=== PATIENT | female | born 2000 | race Caucasian/White ===

== ENCOUNTER 2020-08-08 12:51 | Emergency (ER) | payer BC, SELFPAY ==
[2020-08-08 13:18] VITALS: BP 106/66; PULSE 86; RESP 16; TEMP 37; O2SAT 98
--- NOTE | 2020-08-08 13:50 | ED.URI ---
HPI - URI/Sore Throat General Chief Complaint: Upper Respiratory Infection Stated Complaint: coughing up blood History of Present Illness HPI Narrative: This is a 19-year-old female comes in complaining of having a sore throat for the past 2 days. Patient states today she went to work started getting hot flashes and feeling weak and shaky and then she began to cough up blood into her mask. Patient states she took her mask off and started coughing in blood continue to come for approximately 30 minutes. Patient states that still when she has a cough or sneeze the blood is in her mask. Patient states that she has vape for approximately 1 to 2 years and she is quit according to patient she quit approximately 1 to 2 weeks ago she does smoke a pack a day. Patient denies any fever or nausea Related Data Home Medications Medication Instructions Recorded Confirmed No Home Medications 08/08/20 08/08/20 Allergies Allergy/AdvReac Type Severity Reaction Status Date / Time No Known Allergies Allergy Verified 08/08/20 13:09 Review of Systems Review of Systems: Narrative: CONSTITUTIONAL: Denies fever, chills, or sweats. EYES: Denies visual changes, redness, or discharge. ENT: Denies rhinorrhea, congestion, sore throat, or otalgia. CARDIOVASCULAR:Denies chest pain, palpitations, or edema. RESPIRATORY: Denies cough or dyspnea. Coughing up blood GASTROINTESTINAL: Denies abdominal pain, nausea, vomiting, or diarrhea. GENITOURINARY: Denies dysuria or hematuria. SKIN:[Denies rash or itching. MUSCULOSKELETAL:Denies back pain, joint pain, or myalgia. NEUROLOGIC: Denies headache, numbness, or weakness. PSYCHIATRIC:Denies anxiety or depression PMFSH Social History Social History Gender identity (if verbalized by the patient): Female Comments At time as signature, I have reviewed and agree with nursing past medical, social, surgical and family history. Please see nursing chart for further information. There is no relevant family history pertinent to the presenting complaint. Exam Narrative: Exam Narrative: GENERAL:Well-appearing, well-nourished, and in no acute distress. HEAD:Normocephalic, atraumatic. EYES: PERRLA and EOMI. ENT: Nares clear, no rhinorrhea or epistaxis. Mucous membranes moist. Slight pharyngeal erythema NECK: Supple. CHEST: Clear to auscultation. No respiratory distress. HEART: Regular rate and rhythm. No murmur heard. Normal peripheral pulses. ABDOMEN: Soft, nontender, nondistended, normal active bowel sounds. EXTREMITIES: Normal range of motion. No edema. SKIN: Warm, dry, no rash. NEURO: No focal deficits. Alert and oriented x3. Patient currently has a mask that is bloodstained Course Vital Signs Vital signs: Vital Signs Temperature 98.6 F 08/08/20 13:18 Pulse Rate 86 08/08/20 13:18 Respiratory Rate 16 08/08/20 13:18 Blood Pressure 106/66 08/08/20 13:18 Pulse Oximetry 98 08/08/20 13:18 Temperature 98.6 F 08/08/20 13:18 Pulse Rate 86 08/08/20 13:18 Respiratory Rate 16 08/08/20 13:18 Blood Pressure 106/66 08/08/20 13:18 Pulse Oximetry 98 08/08/20 13:18 MDM - URI/Sore Throat MDM Narrative Medical decision making narrative: Strep negative, Covid negative, Influenza Negative Differential Diagnosis Differential diagnosis: Likely upper respiratory infection and bronchitis Lab Data Labs: Lab Results 08/08/20 Range/Units 13:25 POC SARS CoV-2 Ag Negative (Negative) Influenza A Screen Negative Reference Range: Negative Influenza B Screen Negative Reference Range: Negative Strep Screen Presumptive Negative *(Reference Range: Negative)* Discharge Plan Discharge Clinical Impression: Cough with hemoptysis Patient Disposition: Acute Care Hospital Condition: Stable
== END 2020-08-08 14:00 | disposition short-term general hospital (02) ==
PROVIDERS: Emergency Provider Nurse Practitioner Family
DX: R04.2 Hemoptysis (principal); Z20.822 Contact with and (suspected) exposure to COVID-19
CPT/HCPCS: 87081; 87426; 87804; 87880; 99203; C9803; G0463

== ENCOUNTER 2020-08-08 14:20 | Emergency (ER) | payer BC, SELFPAY ==
--- NOTE | 2020-08-08 16:03 | PC.NURSE ---
Patient called without answer for triage at this time.
== END 2020-08-08 16:03 | disposition left against medical advice (07) ==
LOC: ANHED 16:23
DX: Z53.21 Procedure and treatment not carried out due to patient leaving prior to being seen by health care provider (principal)
CPT/HCPCS: 99199

== ENCOUNTER 2020-08-08 17:02 | Emergency (ER) | payer BC, SELFPAY ==
--- NOTE | 2020-08-08 17:30 | PC.NURSE ---
patient walked out of ED, reports that she can come back tomorrow and does not want to wait again.
== END 2020-08-08 18:45 | disposition left against medical advice (07) ==
LOC: ANHED 18:51
DX: Z53.21 Procedure and treatment not carried out due to patient leaving prior to being seen by health care provider (principal)
CPT/HCPCS: 99199

== ENCOUNTER 2024-01-24 17:21 | Outpatient (CLI) | payer BC, SELFPAY ==
[2024-01-24 18:13] LABS: Beta HCG Quantitative 246.54 mIU/ML
== END 2024-01-24 17:22 | disposition home or self-care (01) ==
PROVIDERS: Visit Provider Advanced Practice Midwife
DX: N91.2 Amenorrhea, unspecified (principal)
CPT/HCPCS: 36415; 84702

== ENCOUNTER 2024-01-26 15:54 | Outpatient (CLI) | payer BC, SELFPAY | END 2024-01-26 15:55 | disposition home or self-care (01) | LOC: ANHLAB 15:56 | PROVIDERS: Visit Provider Obstetrics & Gynecology | DX: N91.2 Amenorrhea, unspecified (principal) | CPT/HCPCS: 36415; 84702 ==

== ENCOUNTER 2024-02-03 11:48 | Outpatient (RCR) | payer BC, SELFPAY ==
[2024-02-01 13:38] LABS: Beta HCG Quantitative 514.52 mIU/ML
== END 2024-05-01 23:59 | disposition home or self-care (01) ==
LOC: ANHLAB 11:48
PROVIDERS: Visit Provider Nurse Practitioner Women's Health
DX: O26.851 Spotting complicating pregnancy, first trimester (principal); Z3A.00 Weeks of gestation of pregnancy not specified
CPT/HCPCS: 36415; 84702

== ENCOUNTER 2024-02-07 14:55 | Outpatient (RCR) | payer BC, SELFPAY ==
[2024-02-07 15:38] LABS: Beta HCG Quantitative 27.23 mIU/ML
== END 2024-05-07 23:59 | disposition home or self-care (01) ==
LOC: ANHLAB 14:55
PROVIDERS: Visit Provider Advanced Practice Midwife
DX: O03.9 Complete or unspecified spontaneous abortion without complication (principal)
CPT/HCPCS: 36415; 84702; 86850; 86900; 86901

== ENCOUNTER 2024-11-13 11:30 | Observation (INO) | payer BC, MEDICAID, SELFPAY ==
--- NOTE | ~2024-11-13 | US_ITS ---
EXAMINATION: US OB limited DATE: 11/13/2024 11:05 INDICATION: Vaginal bleeding during second trimester TECHNIQUE: Real-time ultrasound of the pelvis was performed. The interpreting radiologist was not pre sent for the study. COMPARISON: None. FINDINGS: There is a single living fetus in vertex presentation. The placenta is anterior with caudal margin 4 .2 cm from the internal cervical os. There is a 2.3 x 1.1 x 0.7 cm anechoic fluid collection along th e superficial margin of the right side of the placenta which could represent a placental reyes or smal l subchorionic hematoma. Slightly favor the former. Cervical length is measured at approximately 2.7 cm however assessment is limited on the transabdominal imaging with the region of the external os not clearly visualized. No evident funneling at the internal cervical os. heart rate is 151 beats per minute (bpm). The amniotic fluid volume is subjectively normal with normal deepest vertical pocke t measurement of 5.6 cm. IMPRESSION: 1. Single living fetus in vertex presentation with heart rate of 151 bpm. 2. Anterior placenta with caudal margin 4.2 cm and internal cervical os and 2.3 x 1.1 x 0.7 cm placen abbie reyes versus less likely subchorionic hematoma along the right side of the placenta. 3. Cervical length measured at 2.7 cm although this may be underestimated as the external os is not c learly visualized on the transabdominal imaging. Reviewed, dictated and finalized at location B. IMPRESSION: 1. Single living fetus in vertex presentation with heart rate of 151 bpm . 2. Anterior placenta with caudal margin 4.2 cm and internal cervical os and 2.3 x 1.1 x 0.7 cm placental reyes versus less likely subchorionic hematoma along t he right side of the placenta. 3. Cervical length measured at 2.7 cm although this may be underestimated as th e external os is not clearly visualized on the transabdominal imaging.
[2024-11-13 10:22] VITALS: BMI 27.0
--- NOTE | 2024-11-13 10:24 | OBADM ---
This patient, Tiffanie Peng, admitted to the OB room 113 for observation. Patient/family oriented to hospital policies and general routines including ID bracelet, bed and alarms, visiting hours, pain management, procedures, bathroom and other care routines, personal items, smoking policy, room service/diet, and visiting hours. Patient/Family are encouraged to report perceived risks to care and to ask questions if they do not understand what they are told or what they should do.
--- NOTE | 2024-11-13 10:37 | PC.NURSE ---
Dr. Jordan Notified of pt. on the unit for vaginal bleeding and cramping. Order received for US to check placenta.
[2024-11-13 10:43] VITALS: BP 110/62; PULSE 82
--- NOTE | 2024-11-13 11:00 | PC.NURSE ---
FHTs verified via doppler, baseline 156. 1 contraction noted for 1 minute, not felt by patient.
--- OUTSIDE RECORDS SUMMARY | 2024-11-13 11:26 | XMS_ITS | Patient Health Record ---
Author Organization [facility] Address [address] [place] [address] Support Name Relationship Address Phone KumarRolanda london Emergency Contact Unknown [phone] Tiffanie Peng Guarantor Unknown [phone] Reason For Referral No Information Plan Of Treatment No Information
--- OUTSIDE RECORDS SUMMARY | 2024-11-13 11:26 | XMS_ITS | Clinical Summary ---
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 Gender Identity Not on file Sexual Orientation Not on file Plan of Treatment Health Maintenance Due Date Last Done Comments Hepatitis C Virus (HCV) Screening 1999 Human Papillomavirus (HPV) Immunization (1 - 3-dose series) 2014 Pap Smear 2020 Influenza Immunization (#1) 2024 SARS-COV-2 Immunization (2 - 2023- season) 2024 07/27/2021 Respiratory Syncytial Virus (RSV) Immunization (Adult) (1 - 1-dose 75+ series) 2074 Hepatitis B Immunization Completed 000, 01/12/2000, 1999 DTaP/Tdap/Td Immunization Discontinued 2011, 01/30/2005, 02/19/2003, Additional history exists TdaP Immunization Completed 08/13/2011 Meningococcal Immunization (ACWY) Completed 02/24/2018 Meningococcal B Immunization Discontinued 08/12/2018, 02/24/2018 Pneumococcal Immunization Combined Aged Out No longer eligible based on patient's age to complete this topic Rotavirus Immunization Aged Out No lo nger eligible based on patient's age to complete this topic
--- NOTE | 2024-11-13 11:29 | PC.NURSE ---
Dr. Jordan called with US results. Orders received to id home to self care. Follow up in the office and pelvic rest until further notice.
--- OUTSIDE RECORDS SUMMARY | 2024-11-14 07:23 | XMS_ITS | Clinical Summary ---
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
--- OUTSIDE RECORDS SUMMARY | 2024-11-14 07:24 | XMS_ITS | Data Portability ---
Author Organization [facility] Address [address] [place] [address] [place] [address] Assessment Encounter Date Assessment Date Assessment LastModified by Organization Details LastModified Time 11/10/2024 11/10/2024 Patient is _20__weeks . Discussed plan. Not available 11/10/2024 15:38:54 Plan of Treatment Reminders Order Date Submit Date Provider Last Modified By Organization Details Last Modified Time Details Appointments U/S OB BASELIN E 2024 01:30P M ULTRASOUND Not available Not available Not available OB ROUTINE 2024 02:45P M Berhane CAIN MD Not available Not available Not available Lab drug screen, urine 2024 025 [facility], [address], [place], [address], 11/10/2024 17:35:50 drug screen, urine 2024 025 [facility] (Lab), [address], [place], [address], 11/11/2024 06:42:11 Referral None recorde d. Procedures None recorde d. Surgeries None recorde d. Imaging US, obstetr ic, 2nd or 3rd trimest er 2024 025 [email or web address] [facility], [address], [place], [address], 11/10/2024 17:42:59 US, obstetr ic, nuchal translu cency 2024 025 [email or web address] [facility], [address], [address], [place], [address], 09/14/2024 22:26:43 Medication Orders None recorde d. Patient TargetsNo targets recorded. Patient InstructionsNo instructions recorded. Reason for Referral None Reported. Results Created Date Observation Date Name Description Value Unit Range Abnormal Flag Note LastModifiedBy Organization Detail LastModifiedTime 09/22/1909/21/2024 [UNIT Y] ANEUP LOIDY NIPT fraction 14.2% normal Not Available [facility] [address] [place] [address], [place], [address], 09/21/2024 02:52:11 09/22/19 25 09/21/2024 [UNIT Y] ANEUP LOIDY NIPT 22Q11.2 microdeletio n LOW RISK <1 in 10,000 normal Not Available [facility] [address] [place], [address], 09/21/2024 02:52:11 09/22/19 25 09/21/2024 [UNIT Y] ANEUP LOIDY NIPT sex chromosome aneuploidy NOT DETECT ED normal Not Available [facility] [address] [facility], [place], [address], 09/21/2024 02:52:11 09/22/19 25 09/21/2024 [UNIT Y] ANEUP LOIDY NIPT monosomy X LOW RISK <1 in 10,000 normal Not Available [facility] [address] [place], [address], 09/21/2024 02:52:11 09/22/19 25 09/21/2024 [UNIT Y] ANEUP LOIDY NIPT trisomy 13 LOW RISK <1 in 10,000 normal Not Available [facility] [address] [facility], [place], [address], 09/21/2024 02:52:11 09/22/19 25 09/21/2024 [UNIT Y] ANEUP LOIDY NIPT trisomy 18 LOW RISK <1 in 10,000 normal Not Available [facility] [address] [facility], [place], [address], 09/21/2024 02:52:11 09/22/19 25 09/21/2024 [UNIT Y] ANEUP LOIDY NIPT trisomy 21 LOW RISK <1 in 10,000 normal Not Available [facility] [address] [facility], [place], [address], 09/21/2024 02:52:11 09/22/19 25 09/21/2024 [UNIT Y] ANEUP LOIDY NIPT sex FEMALE normal Not Available [facility] [address] [facility], [place], [address], 09/21/2024 02:52:11 09/22/19 25 09/21/2024 [UNIT Y] ANEUP LOIDY NIPT gestation SINGLE TON normal Not Available [facility] [address] [facility], [place], [address], 09/21/2024 02:52:11 09/22/19 25 09/21/2024 [UNIT Y] ANEUP LOIDY NIPT for detailed report, see pdf See PDF normal Not Available [facility] [address] [facility], [place], [address], 09/21/2024 02:52:11 09/23/19 25 09/22/2024 [UNIT Y] HEIDE SALGADO N sickle cell disease/beta -thalassemia /hemoglobino pathies carrier screen NEGATI VE normal Not Available [facility] [address] [facility], [place], [address], 09/22/2024 19:34:32 09/23/19 25 09/22/2024 [UNIT Y] HEIDE SALGADO N alpha-thalas semia carrier screen NEGATI VE normal Not Available [facility] [address] [facility], [place], [address], 09/22/2024 19:34:32 09/23/19 25 09/22/2024 [UNIT Y] HEIDE Hyatt cystic fibrosis carrier screen NEGATI VE normal Not Available [facility] [address], [place], [address], 09/22/2024 19:34:32 09/23/19 25 09/22/2024 [UNIT Y] HEIDE Hyatt spinal muscular atrophy carrier screen NEGATI VE 2 SMN1 copies , SNP not presen t normal Not Available [facility] [address], [place], [address], 09/22/2024 19:34:32 09/23/19 25 09/22/2024 [UNIT Y] HEIDE LISA Hyatt for detailed report, see pdf See PDF normal Not Available [facility] [address], [place], [address], 09/22/2024 19:34:32 09/14/19 25 09/14/2024 CBC W/DIF F WBC 11.0 10'3/ uL 3.5-10 .5 high Not Available [facility] (Lab) [address] [place], [address], 09/19/2024 10:34:00 09/14/19 25 09/14/2024 CBC W/DIF F RBC 4.45 10'6/ uL (based on docume nted legal sex) 3.80-5 .20 Not Available [facility] (Lab) [address] [place], [address], 09/19/2024 10:34:00 09/14/19 25 09/14/2024 CBC W/DIF F HGB 12.4 g/dL (based on docume nted legal sex) 11.6-1 5.4 Not Available [facility] (Lab) [address] [place], [address], 09/19/2024 10:34:00 09/14/19 25 09/14/2024 CBC W/DIF F HCT 37.4 % (based on docume nted legal sex) 34.0-4 5.0 Not Available [facility] (Lab) [address], [place], [address], 09/19/2024 10:34:00 09/14/19 25 09/14/2024 CBC W/DIF F MCV 84.0 fL 80.0-9 9.0 Not Available [facility] (Lab) [address], [place], [address], 09/19/2024 10:34:00 09/14/19 25 09/14/2024 CBC W/DIF F MCH 27.9 pg 27.0-3 4.0 Not Available [facility] (Lab) [address], [place], [address], 09/19/2024 10:34:00 09/14/19 25 09/14/2024 CBC W/DIF F MCHC 33.2 g/dL 32.0-3 5.5 Not Available [facility] (Lab) [address], [place], [address], 09/19/2024 10:34:00 09/14/19 25 09/14/2024 CBC W/DIF F RDW 13.2 % 11.0-1 5.0 Not Available [facility] (Lab) [address], [place], [address], 09/19/2024 10:34:00 09/14/19 25 09/14/2024 CBC W/DIF F plt 264 10'3/ uL 150-40 0 Not Available [facility] (Lab) [address], [place], [address], 09/19/2024 10:34:00 09/14/19 25 09/14/2024 CBC W/DIF F MPV 11.1 fL 8.8-12 .1 Not Available [facility] (Lab) [address], [place], [address], 09/19/2024 10:34:00 09/14/19 25 09/14/2024 CBC W/DIF F neutrophils 67.9 % 34.0-7 3.0 Not Available [facility] (Lab) [address] [place], [address], 09/19/2024 10:34:00 09/14/19 25 09/14/2024 CBC W/DIF F lymphocytes 24.9 % 15.0-5 0.0 Not Available [facility] (Lab) [address] [place], [address], 09/19/2024 10:34:00 09/14/19 25 09/14/2024 CBC W/DIF F monocytes 5.6 % 1.0-15 .0 Not Available [facility] (Lab) [address] [place], [address], 09/19/2024 10:34:00 09/14/19 25 09/14/2024 CBC W/DIF F eosinophils 0.8 % 0.0-8. 0 Not Available [facility] (Lab) [address] [place], [address], 09/19/2024 10:34:00 09/14/19 25 09/14/2024 CBC W/DIF F basophils 0.5 % 0.0-2. 0 Not Available [facility] (Lab) [address] [place], [address], 09/19/2024 10:34:00 09/14/19 25 09/14/2024 CBC W/DIF F immature granulocytes 0.3 % no define d refere nce range Immat ure Granu locyt es (IG) repre sents autom ated enume ratio n of Metam yeloc ytes, Myelo cytes and Promy elocy william when IG is < 5%. Blast s are not inclu ded in IG and repor tyrone separ ately if prese nt. Not Available [facility] (Lab) [address] [place], [address], 09/19/2024 10:34:00 09/14/19 25 09/14/2024 CBC W/DIF F absolute neutrophils 7.4 10'3/ uL 1.5-8. 0 Not Available [facility] (Lab) [address], [place], [address], 09/19/2024 10:34:00 09/14/19 25 09/14/2024 CBC W/DIF F absolute lymphocytes 2.7 10'3/ uL 1.0-4. 0 Not Available [facility] (Lab) [address], [place], [address], 09/19/2024 10:34:00 09/14/19 25 09/14/2024 CBC W/DIF F absolute monocytes 0.6 10'3/ uL 0.2-1. 0 Not Available [facility] (Lab) [address], [place], [address], 09/19/2024 10:34:00 09/14/19 25 09/14/2024 CBC W/DIF F absolute eosinophils 0.1 10'3/ uL 0.0-0. 6 Not Available [facility] (Lab) [address], [place], [address], 09/19/2024 10:34:00 09/14/19 25 09/14/2024 CBC W/DIF F absolute basophils 0.1 10'3/ uL 0.0-0. 3 Not Available [facility] (Lab) [address], [place], [address], 09/19/2024 10:34:00 09/14/19 25 09/14/2024 CBC W/DIF F absolute immature granulocytes 0.0 10'3/ uL 0.00-0 .10 Refer ence range s for nonbi nary/ inter sex or unspe cifie d gende r patie nts have not been estab lishe d. Pleas e refer to the follo wing table for range s estab lishe d for cisge nder patie nts and evalu ate in the clini charity mary anne xt of the indiv idual patie nt: https ://stella davies book. ca.or g/gen derx Not Available [facility] (Lab) [address], [place], [address], 09/19/2024 10:34:00 09/14/19 25 09/14/2024 HEPAT ITIS C ANTIB SEB SCREE N, REFLE X TO CONFI RMATI ON hepatitis C antibody Non-re active non-re active Antib odies to HCV Not Detec tyrone, does not exclu de the possi bilit y of expos ure to HCV. Not Available [facility] (Lab) [address], [place], [address], 09/19/2024 10:34:00 09/14/1909/14/2024 HIV 1/2 ANTIG EN/AN TIBOD Y, REFLE X CONFI RMATI ON HIV antigen/anti body Nonrea ctive nonrea ctive HIV-1 antig en and HIV-1 /HIV- 2 antib odies were not detec tyrone. No labor atory evide nce of HIV infec tion. Not Available [facility] (Lab) [address], [place], [address], 09/19/2024 10:34:01 09/14/1909/14/2024 HEPAT ITIS B SURFA CE ANTIG EN hepatitis B surface antigen Non-re active non-re active This assay was perfo rmed using [employer] ratio n reage nts and test kits. Value s obtai anjali with other assay metho ds or kits canno t be used inter dial eably . Not Available [facility] (Lab) [address], [place], [address], 09/19/2024 10:34:01 09/14/1909/14/2024 RUBEL LA IGG ANTIB SEB, QUANT rubella antibodies, IgG Reacti ve reacti ve Not Available [facility] (Lab) [address], [place], [address], 09/19/2024 10:34:02 09/14/19 25 09/14/2024 RUBEL LA IGG ANTIB SEB, QUANT rubella antibodies, IgG quant 26.8 IU/mL >=10 Non-r eacti ve (Non- Immun e) <10 IU/mL React sophia (Immu ne) > or = 10 IU/mL Not Available [facility] (Lab) [address], [place], [address], 09/19/2024 10:34:02 09/14/19 25 09/14/2024 TYPE/ RH/SC REEN ABO/Rh type O POS Not Available [facility] (Lab) [address], [place], [address], 09/19/2024 10:34:02 09/14/19 25 09/14/2024 TYPE/ RH/SC REEN antibody screen NEG Not Available [facility] (Lab) [address], [place], [address], 09/19/2024 10:34:02 09/14/19 25 09/14/2024 TYPE/ RH/SC REEN exp date 2024 23:59 Not Available [facility] (Lab) [address], [place], [address], 09/19/2024 10:34:02 09/14/19 25 09/14/2024 RPR SCREE N, REFLE X TITER /CONF IRMAT ION RPR qualitative Nonrea ctive nonrea ctive Not Available [facility] (Lab) [address], [place], [address], 09/19/2024 10:34:03 09/14/19 25 09/14/2024 HEMOG LOBIN A1C hemoglobin A1C 5.3 % 4.0-5. 6 The Ameri can [employer] william [employer] iatio n recom mends that a prima ry goal of thera py david d be a HBA1C of < 7% and that physi cians shoul d reeva luate the treat ment regim en in patie nts with HBA1C value s consi stent ly > 8%. <5.7% Vikki l 5.7 - 6.4% Incre ased risk for diabe william >=6.5 % Diagn ostic of diabe william <7.0% Goal of thera py >8.0% Actio n sugge sted Not Available [facility] (Lab) [address], [place], [address], 09/19/2024 10:34:04 11/11/1911/10/2024 DRUG SCREE N, URINE ,WITH CONFI RMATI ON amphetamines screen, urine Negati ve negati ve Cut-o ff for Posit sophia Inter preta tion: >= 1000n g/mL Not Available [facility] (Lab) [address], [place], [address], 11/11/2024 06:42:11 11/11/1911/10/2024 DRUG SCREE N, URINE ,WITH CONFI RMATI ON barbiturates screen, urine Negati ve negati ve Cut-o ff for Posit sophia Inter preta tion: >= 200ng /mL Not Available [facility] (Lab) [address] [place], [address], 11/11/2024 06:42:11 11/11/1911/10/2024 DRUG SCREE N, URINE ,WITH CONFI RMATI ON cocaine metabolite screen, urine Negati ve negati ve Cut-o ff for Posit sophia Inter preta tion: >= 300ng /mL Not Available [facility] (Lab) [address] [place], [address], 11/11/2024 06:42:11 11/11/1911/10/2024 DRUG SCREE N, URINE ,WITH CONFI RMATI ON opiate metabolites, urine Negati ve negati ve Cut-o ff for Posit sophia Inter preta tion: >= 300ng /mL Not Available [facility] (Lab) [address] [place], [address], 11/11/2024 06:42:11 11/11/1911/10/2024 DRUG SCREE N, URINE ,WITH CONFI RMATI ON cannabinoids , urine Negati ve negati ve Cut-o ff for Posit sophia Inter preta tion: >= 50ng/ mL Not Available [facility] (Lab) [address] [place], [address], 11/11/2024 06:42:11 11/11/19 25 11/10/2024 DRUG SCREE N, URINE ,WITH CONFI RMATI ON phencyclidin e screen, urine Negati ve negati ve Cut-o ff for Posit sophia Inter preta tion: >= 25ng/ mL Not Available [facility] (Lab) [address] [place], [address], 11/11/2024 06:42:11 11/11/19 25 11/10/2024 DRUG SCREE N, URINE ,WITH CONFI RMATI ON benzodiazepi ne screen, urine Negati ve negati ve Cut-o ff for Posit sophia Inter preta tion: >= 200ng /mL Not Available [facility] (Lab) [address] [place], [address], 11/11/2024 06:42:11 11/11/19 25 11/10/2024 drug scree n, urine Amphetamines : negati ve Not Available [facility] [address], [place], [address], 11/10/2024 15:31:10 11/11/19 25 11/10/2024 drug scree n, urine Cannabinoids : negati ve Not Available [facility] [address], [place], [address], 11/10/2024 15:31:10 11/11/19 25 11/10/2024 drug scree n, urine Cocaine: negati ve Not Available [facility] [address], [place], [address], 11/10/2024 15:31:10 11/11/19 11/10/2024 drug scree n, urine Opiates: negati ve Not Available [facility] [address], [place], [address], 11/10/2024 15:31:10 11/11/19 25 11/10/2024 drug scree n, urine Phenocyclidi ne: negati ve Not Available [facility] [address], [place], [address], 11/10/2024 15:31:10 11/11/19 25 11/10/2024 drug scree n, urine Barbiturates : negati ve Not Available [facility] [address], [place], [address], 11/10/2024 15:31:10 11/11/19 25 11/10/2024 drug scree n, urine Benzodiazepi mynor: negati ve Not Available [facility] [address], [place], [address], 11/10/2024 15:31:10 11/11/19 25 11/10/2024 drug scree n, urine Ethanol: negati ve Not Available [facility] [address], [place], [address], 11/10/2024 15:31:10 11/11/19 25 11/10/2024 drug scree n, urine Hallucinogen s: negati ve Not Available [facility] [address], [place], [address], 11/10/2024 15:31:10 11/11/19 25 11/10/2024 drug scree n, urine Inhalants: negati ve Not Available [facility] [address], [place], [address], 11/10/2024 15:31:10 11/11/19 25 11/10/2024 drug scree n, urine Anabolic Steroids: negati ve Not Available [facility] [address], [place], [address], 11/10/2024 15:31:10 11/11/19 25 11/10/2024 drug scree n, urine Other: negati ve Not Available [facility] [address], [place], [address], 11/10/2024 15:31:10 08/28/19 25 08/28/2024 US, obste tric, 1st trime ster No observ ation record ed. [email or web address] [address], [place], [address], 08/30/2024 11:21:12 09/14/19 25 09/14/2024 US, obste tric, nucha l trans lucen cy No observ ation record ed. [email or web address] [facility] [address], [place], [address], 09/14/2024 18:38:07 09/14/19 25 09/14/2024 US, obste tric, nucha l trans lucen cy No observ ation record ed. [email or web address] [address], [place], [address], 09/14/2024 21:35:10 09/14/19 25 09/14/2024 US, obste tric, nucha l trans lucen cy No observ ation record ed. [email or web address] [address], [place], [address], 09/14/2024 21:35:10 09/14/19 25 09/14/2024 US, obste tric, nucha l trans lucen cy No observ ation record ed. [email or web address] [address], [place], [address], 09/14/2024 21:35:11 11/11/19 25 11/13/2024 US, obste tric, 2nd or 3rd trime ster No observ ation record ed. [facility] [address], [place], [address], 11/13/2024 17:54:43 11/11/19 25 11/10/2024 US, obste tric, 2nd or 3rd trime ster No observ ation record ed. [email or web address] [address], [place], [address], 11/13/2024 10:20:28 11/11/19 25 11/10/2024 US, obste tric, 2nd or 3rd trime ster No observ ation record ed. [email or web address] [address], [place], [address], 11/13/2024 18:38:56 11/14/19 25 11/13/2024 imagi ng/di agnos tic resul t No observ ation record ed. [email or web address], [place], [address], 11/13/2024 23:20:47 Result Notes None recorded. Problems Name Problem SNOMED Code Status Onset Date Resolution Date Notes Provider Name and Address Organization Details Recorded Time Pregnanc y 79978707 Active 2024 Maritza galeana, [facility] 15:26:39 History of opioid abuse 96735629963 9100 Active 2024 Liliana galeana [facility] 15:23:12 History of opioid abuse 69334426468 9100 Active 2024 Liliana galeana [facility] 15:23:12 Venous reyes 276892613 Active 2024 placenta vs. hematoma per hospital radiology Yonny Cain MD [address], [place], [address], [facility] 12:22:30 Problem Notes None recorded. Procedures Surgical History None recorded. Imaging Results Imaging Date Name Status LastModified by Organization Details LastModified Time 08/28/2024 US, obstetric, 1st trimester completed [email or web address] [address], [place], [address], 08/30/2024 11:21:12 09/14/2024 US, obstetric, nuchal translucency completed [place] [address], [place], [address], 09/14/2024 18:38:07 09/14/2024 US, obstetric, nuchal translucency completed [email or web address] [address], [place], [address], 09/14/2024 21:35:10 09/14/2024 US, obstetric, nuchal translucency completed [email or web address] [address], [place], [address], 09/14/2024 21:35:10 09/14/2024 US, obstetric, nuchal translucency completed [email or web address] [address], [place], [address], 09/14/2024 21:35:11 11/13/2024 US, obstetric, 2nd or 3rd trimester completed [email or web address] [address], [place], [address], 11/13/2024 17:54:43 11/10/2024 US, obstetric, 2nd or 3rd trimester completed [email or web address] [address], [place], [address], 11/13/2024 10:20:28 11/10/2024 US, obstetric, 2nd or 3rd trimester active [address], [place], [address], 11/13/2024 18:38:56 11/13/2024 imaging/diagnost ic result active [address] [facility] [address], [place], [address], 11/13/2024 23:20:47 Procedure Notes None recorded. Medical Equipment None Reported. Allergies No known drug allergies Medications Name Sig Start Date Stop Date Status Note LastModified by Organization Details LastModified Time metronidazole 500 mg tablet 08/04 completed Not Available Not Available Not Available lamotrigine 25 mg tablet 08/04 completed Not Available Not Available Not Available amoxicillin 875 mg-potassium clavulanate 125 mg tablet 08/04 completed Not Available Not Available Not Available Vitals Date Recorded Body height Body mass index (BMI) Body weight Systolic blood pressure Diastolic blood pressure Provider Name and Address Organization Details Last Updated DateTime 09/14/2024 157.48 cm 25.8 kg/m2 21728.52 g 118 mm[Hg] 72 mm[Hg] Maritza Berry [facility] 16:36:17 Date Recorded Body height Body mass index (BMI) Body weight Systolic blood pressure Diastolic blood pressure Provider Name and Address Organization Details Last Updated DateTime 10/13/2024 157.48 cm 25.8 kg/m2 64952.24 g 121 mm[Hg] 78 mm[Hg] LINDY Jay [facility] 16:24:58 Date Recorded Body weight Body mass index (BMI) Body height Systolic blood pressure Diastolic blood pressure Provider Name and Address Organization Details Last Updated DateTime 11/10/2024 36765.26 313 g 27.3 kg/m2 157.48 cm 129 mm[Hg] 67 mm[Hg] Liliana Kim [facility] 15:22:21 Social History Question Answer Notes LastModified by Organizat ion Details LastModified Time Tobacco Smoking Status Current Every Day Smoker Liliana Kim [facility], [facility] 11/10/2024 15:25:01 What Is Your Level Of Alcohol Consumption? None [email or web address] Information not available 08/04/2024 If You Are , What Was Your Level Of Alcohol Consumption Prior To ? Occasional [email or web address] Information not available 11/10/2024 Are You Blind Or Do You Have Difficulty Seeing? No [email or web address] Information not available 08/04/2024 What Is Your Level Of Caffeine Consumption? Occasional [email or web address] Information not available 08/04/2024 In The 14 Days Before Symptom Onset, Have You Had Close Contact With A Laboratory-confir med COVID-19 While That Case Was Ill? No [email or web address] Information not available 08/04/2024 In The 14 Days Before Symptom Onset, Have You Had Close Contact With A Person Who Is Under Investigation For COVID-19 While That Person Was Ill? No [email or web address] Information not available 08/04/2024 Have You Been To An Area Known To Be High Risk For COVID-19? No [email or web address] Information not available 08/04/2024 Are You Deaf Or Do You Have Serious Difficulty Hearing? No Information not available 08/04/2024 What Type Of Diet Are You Following? REGULAR [email or web address] Information not available 08/04/2024 Do You Or Have You Ever Used E-cigarettes Or Vape? Current User Of Electronic Cigarettes [email or web address] Information not available 11/10/2024 What Is The Highest Grade Or Level Of School You Have Completed Or The Highest Degree You Have Received? 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 No [email or web address] Information not available 08/04/2024 Do You Use Protection During Sex? No [email or web address] Information not available 08/04/2024 Do You Use Your Seat Belt Or Car Seat Routinely? Yes Information not available 08/04/2024 Do You Have Smoke And Carbon Monoxide Detectors In Your Home? Yes [email or web address] Information not available 08/04/2024 At What Age Did You Start Smoking Tobacco? 17 [email or web address] Information not available 08/04/2024 How Much Tobacco Do You Smoke? 1 PPW [email or web address] Information not available 09/14/2024 Do You Feel Stressed (tense, Restless, Nervous, Or Anxious, Or Unable To Sleep At Night)? [id number] [email or web address] Information not available 08/04/2024 Do You Use Any Illicit Or Recreational Drugs? Yes History Of Opioid Abuse [email or web address] Information not available 11/10/2024 Do You Use Sunscreen Routinely? No [email or web address] Information not available 08/04/2024 How Many Years Have You Smoked Tobacco? 6 [email or web address] Information not available 08/04/2024 Have You Used IV Drugs? No [email or web address] Information not available 08/04/2024 Do You Or Have You Ever Used Any Other Forms Of Tobacco Or Nicotine? Yes [email or web address] Information not available 11/10/2024 Sex: Unknown Functional Status Question Answer Note LastModified by Organizat ion Details LastModified Time Do you have difficulty walking or climbing stairs? No [email or web address] Information not available 11/10/2024 Are you able to walk? YESWOREST [email or web address] Information not available 08/04/2024 Are you able to care for yourself? Yes [email or web address] Information not available 11/10/2024 Do you have difficulty dressing or bathing? No [email or web address] Information not available 11/10/2024 What is your exercise level? Occasional [email or web address] Information not available 08/04/2024 Mental Status None recorded. Family History Nothing Reported. Medical History Condition Response Allergies (Food, seasonal, environmental ) N Other N Breast Cancer N Drug/Latex Allergies/Reactions N [id number]|2024-11-14 07:24:00|2024-11-14 07:23:00|XMS_ITS|[facility]|External Medical Summaries|[id number]|" Patient Health Record Created on: November 14, 2024 Tiffanie Peng : 2000 Sex: Female Author Organization [facility] Address [address] [place] [address] Support Name Relationship Address Phone Kumar Rolanda Emergency Contact Unknown Tiffanie Peng Guarantor Unknown [phone] Reason For Referral No Information Plan Of Treatment No Information "
--- NOTE | 2024-12-04 21:15 | PM.OBTRLD ---
OB - Triage/Final Diagnosis Visit Information Comments/Additional reasons for admission: I have assessed the risk for this patient, Tiffanie Peng, and determined that she would benefit from observation care. Final Diagnosis (1) False labor: Code(s): O47.9 - False labor, unspecified Status: Acute
== END 2024-11-13 11:44 | disposition home or self-care (01) ==
PROVIDERS: Admitting Provider Obstetrics & Gynecology; Visit Provider Obstetrics & Gynecology
DX: O47.02 False labor before 37 completed weeks of gestation, second trimester (principal); Z3A.21 21 weeks gestation of pregnancy
CPT/HCPCS: 76815; G0378; G0379

== ENCOUNTER 2025-03-17 10:06 | Observation (INO) | payer BC, MEDICAID, SELFPAY ==
--- OUTSIDE RECORDS SUMMARY | 2025-03-17 10:05 | XMS_ITS | Patient Health Record ---
Author Organization [facility] Address [address] [place] [address] Support Name Relationship Address Phone KumarRolanda london Emergency Contact Unknown Tiffanie Peng Guarantor Unknown [phone] Reason For Referral No Information Plan Of Treatment No Information
[2025-03-17 10:07] VITALS: BMI 31.2
--- NOTE | 2025-03-17 10:07 | LDADM ---
This patient, Tiffanie Peng, was admitted to Labor/Delivery/Recovery 105 on 03/17/25 at 08:45. Plans for labor, pain management and were discussed with patient. Patient/family oriented to hospital policies and general routines including ID bracelet, bed and alarms, visiting hours, pain management, procedures, bathroom and other care routines, personal items, smoking policy, room service/diet and guest tray routines, infant security routines, and visiting hours. Patient/Family are encouraged to report perceived risks to care and to ask questions if they do not understand what they are told or what they should do. See OBIX for further documentation.
== END 2025-03-17 10:15 | disposition home or self-care (01) ==
PROVIDERS: Admitting Provider Obstetrics & Gynecology; Visit Provider Obstetrics & Gynecology
DX: O47.1 False labor at or after 37 completed weeks of gestation (principal); Z3A.38 38 weeks gestation of pregnancy
CPT/HCPCS: 99199

== ENCOUNTER 2025-03-18 22:52 | Inpatient (IN) | payer BC, MEDICAID, SELFPAY ==
[2025-03-19] VITALS (94 sets, daily range): BP systolic 89–161; BP diastolic 41–93; PULSE 67–180; RESP 16; TEMP 36.6–37.3; O2SAT 92–100; BMI 31.0
--- NOTE | 2025-03-19 00:19 | P.PNAN_ITS ---
Anes - Eval Pre Procedure Procedure: labor epidural Date/Time: 03/19/25 00:19 Surgeon: karley Preop Diagnosis: pain during labor Pre Op Diagnosis: Labor Patient Data Age: 24 Gender: F Height: Weight: Allergies Allergy/AdvReac Type Severity Reaction Status Date / Time No Known Allergies Allergy Verified 02/20/25 15:00 Home Medications ?Medication ?Instructions ?Recorded ?Confirmed ?Type vit no.95-ferrous 1 tablet PO DAILY 02/20/25 02/20/25 History fumarate 28 mg-folic acid 800 mcg tablet () Patient hx anesthesia problems: none Family hx anesthesia problems: none Results Review: All pre-operative results and documents have been reviewed as part of the pre- operative evaluation. PMFSH Past Medical History Medical History (Updated 03/19/25 @ 00:19 by Eleanor Bangura CRNA) Depression Anxiety IUP (intrauterine ), incidental Family History Family History (Updated 02/20/25 @ 14:56 by Sara Frazier RN) Mother Esophagus, Busch's Father Esophagus, Busch's Social History Social History Substance use: never Do You Feel Safe in your Home?: Yes Lack of Transportation: No Lack of Food: Never True Current Housing: I Have Housing Concerned About Future Housing: No Difficulty Paying Gas/Electric Bills: No Difficulty Paying for Meds: No Currently Unemployed: No Education: Associate Degree Difficulty w/ Childcare or Family Care: No Gender identity (if verbalized by the patient): Female Spiritual care concerns: No Exam Day of Procedure 03/19/25 00:19
[2025-03-19 00:26] LABS: Hematocrit 35.4 % (37.0-47.0); Hemoglobin 11.4 g/dL (12.0-15.0); Immature Granulocyte Percent A 0.5 % (0-0.5); Lymphocytes Absolute Auto 1.40 K/mm3 (0.9-3.2); Mean Corpuscular HGB Conc 32.2 g/dl (32-36); Mean Corpuscular Hemoglobin 25.1 pg (26-34); Mean Corpuscular Volume 78.0 fl (80-100); Nucleated Red Blood Cells Absolute Auto 0.000 K/mm3 (0.0-0.012); Nucleated Red Blood Cells Perc 0.0 % (0.0-0.2); Platelet Count Result 222 k/mm3 (150-375); Red Blood Count 4.54 M/mm3 (4.2-5.4); White Blood Count 16.0 K/mm3 (4.5-10.0)
[2025-03-19] MEDS: LACTATED RINGERS 1,000 ML 125 ML IV CONT ×2 (00:30→06:40)
[2025-03-19] MEDS: AMPICILLIN SODIUM 2 GM in SODIUM CHLORIDE 0.9% IV 100 ML 200 ML IVPB (00:30)
[2025-03-19 00:43] LABS: Cannabinoid Screen Urine Negative (Negative)
[2025-03-19 01:58] LABS: Syphilis IgG/IgM Antibody Non-Reactive (Nonreactive)
--- NOTE | 2025-03-19 04:31 | LDADM ---
This patient, Tiffanie Peng, was admitted to Labor/Delivery/Recovery 104 on 03/18/25 at 22:52. Plans for labor, pain management and were discussed with patient. Patient/family oriented to hospital policies and general routines including ID bracelet, bed and alarms, visiting hours, pain management, procedures, bathroom and other care routines, personal items, smoking policy, room service/diet and guest tray routines, infant security routines, and visiting hours. Patient/Family are encouraged to report perceived risks to care and to ask questions if they do not understand what they are told or what they should do. See OBIX for further documentation.
[2025-03-19] MEDS: AMPICILLIN SODIUM 1 GM in SODIUM CHLORIDE 0.9% IV 50 ML 100 ML IVPB (04:36)
--- NOTE | 2025-03-19 06:07 | PM.OBPRVD ---
OB - Vaginal Delivery Note Procedure Delivery date: 03/19/25 Induction method: None Delivery monitor: External FHT and External Uterine Route of delivery: Episiotomy description: None Laceration Description: Labial Delivery repair: vicryl Specimen: No Quantitative Blood Loss (ml): 150 Anesthesia type: Epidural Disposition: Floor Complications: No immediate complications
--- NOTE | 2025-03-19 06:20 | WPDHPUPDATE1 ---
History and Physical Update Update Date/Time: 03/19/25 06:20 History and Physical has been reviewed, including an updated exam of the patient. There are NO changes in the patient's condition. Risks, benefits, and alternatives have been discussed and questions answered. Patient agrees to proceed with procedure.
[2025-03-19] MEDS: OXYTOCIN 30 UNITS/NS 500 ML 30 UNITS/500 ML BAG 125 UNITS IV CONT (06:32)
--- NOTE | 2025-03-19 12:35 | PC.NURSE ---
Introductions were made, then consulted with patient to assess needs related to . Discussed with mother her?plans to feed?her and the?experience so far. She says that baby latched well after delivery. Patient is encouraged to call out for assistance with waking the baby, latching, or with any questions/concerns. Resources provided for inpatient and outpatient services with the feeding sheet, mom/baby guide and name written on the communication board. Mother voiced understanding of information and will call if there is a request for assistance. Reported to the Primary RN.
--- NOTE | 2025-03-19 13:40 | PC.NURSE ---
Attempted to wake to breastfeed. Mom was trying for about ten minutes independently without success. We unwrapped baby and attempted to latch to the right breast. Baby did not give any attempts to open her mouth or latch. We worked for several minutes and then switched to the left breast. Baby cried when we moved her but she fell back asleep quickly and would not open her mouth or give any feeding cues. Attempted to elicit a suck reflex with a gloved finger but baby gagged and did not suck. Mom says baby has spit up some clear fluid recently. Encouraged mom to keep baby skin to skin or wrap her and try again within 1/2 to 1 hour, calling for assistance as needed. Mom agrees with this plan. Primary RN updated.
--- NOTE | 2025-03-19 14:20 | PC.NURSE ---
Met with patient to attempt again. Baby was moved to the crib, undressed and stimulated. She stirred but did not wake. We attempted on the right and left breast, enticing baby with sugar water. Baby was never able to achieve a successful latch. It has been 4 hours since the last feeding. Mom is encouraged to rest and try again soon, or if baby shows any feeding cues. Patient agrees and primary RN is updated.
--- NOTE | 2025-03-19 16:15 | PC.NURSE ---
Worked with mother to awaken and latch baby. Baby was more alert after her assessment and is skin to skin with mom. Baby is giving a lot more effort to latch but struggles with pushing the nipple out with her tongue. We tried for about ten minutes in cradle/cross cradle and then tried the laid back position. Baby was able to latch with assistance and mom was shown how to make a 'bite' of breast for baby. Mom was shown how to visualize baby's wide angle mouth and is stimulating and encouraging baby to keep her suckling. She has some good suckling bursts before pausing and a few swallows were heard. Mom is very excited that baby latched and we will count this as a good feeding and go two to three hours before the next attempt, unless baby is showing cues sooner. Primary RN updated.
[2025-03-20 00:55] VITALS: BP 107/63; PULSE 78; RESP 14; TEMP 36.9; O2SAT 100
[2025-03-20 05:57] LABS: Hematocrit 32.9 % (37.0-47.0); Hemoglobin 10.0 g/dL (12.0-15.0)
[2025-03-20 07:20] VITALS: BP 120/70; PULSE 77; RESP 16; TEMP 36.6; O2SAT 98
[2025-03-20] MEDS: DOCUSATE SODIUM 100 MG CAPSULE PO (09:02)
[2025-03-20] MEDS: MULTIVIT/MIN/PREN/FOL AC/IRON TABLET 1 TAB PO (09:03)
[2025-03-20] MEDS: LANOLIN (LANSINOH) 7.5 GM CREAM 1 APPLIC TOPICAL (09:03)
--- NOTE | 2025-03-20 14:23 | PC.NURSE ---
1320. Introductions were made, then consulted with patient to assess needs related to . Discussed with mother her plans to feed her and the experience so far. Mom states she is continuing to latch her to the breast first and supplement after with formula and expressed breast milk. She is able to independently latch infant and has no pain with feedings or pumping. When asked if she would like a [facility] referral she confirmed she would like one for the [place] office. Resources provided for inpatient and outpatient services with the feeding sheet, mom/baby guide and name written on the communication board. Mother voiced understanding of information and will call if there is a request for assistance. Reported to the Primary RN 1420. [facility] referral sent via fax at this time.
--- NOTE | 2025-03-20 16:10 | PCCCNOTE ---
CC met with patient at bedside. Patient was accompanied by her boyfriend/baby's father (Prashanth). Patient was holding the baby, as the baby was sleeping. Mother reports this being her first baby. Baby named listed as Micaela Peng. Patient was cooperative in answering questions, alert & oriented X's 4. Patient reports having plenty of support from her mother and other family. Baby's father in the room, was observed playing the video game and reports being a support as well. Mother reports living alone in [facility], in an apartment. Pt reports being provided with WIC and other mother/baby information/resources. CC confirmed that patient/baby has transportation, in which mother reports providing transportation/driving self with her own vehicle. Mother reports that she will be breast feeding baby and so far no complications. Mother reports having a car seat, diapers and other baby items. She reports having a PCP and a few places already for follow up with the baby to establish care at discharge. Mother reports working full-time prior to giving and currently on maternity leave but will return back to work full-time once her time is up. Mother/patient reports no previous DCFS history. Patient/mother reports no previous substance treatment/addiction. When I found out I was , I had took a Percocet that previous day. In speaking with the nurse of patient, mother's UDS was negative and the baby's umbilical cord has been sent off for testing. Mother reports no current needs or questions at this time. CC will follow up on baby's umbilical cord when the results are completed.
[2025-03-20] MEDS: WITCH HAZEL 40 PADS 1 PAD TOPICAL (16:39)
[2025-03-20] MEDS: BENZOCAINE 20% AER SPR (*SP) 56 GM CAN 1 SPRAY TOPICAL (16:39)
[2025-03-20 20:30] VITALS: BP 125/71; PULSE 94; RESP 16; TEMP 36.6; O2SAT 97
--- NOTE | 2025-03-20 21:03 | P.PNOB_ITS ---
OB - PN: Subj Subjective Date/time seen: 03/20/25 07:33 Interval history: PPD#1 s/p Doing well, pain controlled Voiding without issue Tolerating general diet OB - PN: Obj Data Labs 03/20/25 04:33 Labs: Laboratory Results - last 24 hr 03/20/25 04:33 Hgb 10.0 L Hct 32.9 L OB - PN A/P Plan day: 1 Plan: routine care Time Spent With Patient Time: Total time spent is greater than 50% in coordination of care (as documented) at patient's floor/unit and/or counseling patient: Review of Systems 2 Review of Systems: All systems reviewed & are unremarkable except as noted in HPI and below Exam 2 Const: General: comfortable and no acute distress O rientation/consciousness: patient oriented x3 Resp: Effort & Inspection: normal respiratory effort
[2025-03-21] MEDS: MULTIVIT/MIN/PREN/FOL AC/IRON TABLET 1 TAB PO (07:30)
--- NOTE | 2025-03-21 08:04 | P.PNOB_ITS ---
OB - PN: Subj Subjective Date/time seen: 03/21/25 08:04 Interval history: PPD#2 s/p Doing well, pain controlled Voiding without issue Tolerating general diet OB - PN: Obj Data Labs 03/20/25 04:33 OB - PN A/P Plan day: 2 Plan: routine care and discharge home Time Spent With Patient Time: Total time spent is greater than 50% in coordination of care (as documented) at patient's floor/unit and/or counseling patient: Review of Systems 2 Review of Systems: All systems reviewed & are unremarkable except as noted in HPI and below Exam 2 Const: General: cooperative and healthy appearing Chest: Chest palpation & inspection: normal inspection of the chest Resp: Effort & Inspection: normal respiratory effort Cardio: Rate: regular rate GI: Inspection: normal to inspection
--- NOTE | 2025-03-21 08:06 | P.DS_ITS ---
DS: Admitting Diagnosis Discharge Date 03/21/25 Admitting Diagnosis labor DS: Discharge Diagnosis Discharge Diagnosis (1) Normal vaginal delivery: Code(s): O80 - Encounter for full-term uncomplicated delivery Status: Acute OB - DS: Summary OB Procedures : None OB Procedures Intrapartum: Spontaneous Vag Delivery OB Procedures: : None Peripartum Data Laceration Description: Labial Episiotomy description: None Time Spent with Patient Time attestation: Total time spent providing and/or coordinating discharge services: Discharge Plan Discharge Attending physician on discharge: Yonny Jordan Discharging Clinician: Shaila Reed Patient Disposition: Home Activity: pelvic rest Diet: regular Patient Instructions: Antibiotic Form Patient Language: Australian Stand Alone Forms: General Discharge Information Follow-up/Referrals: Jose Rafael Arrieta MD [Physician, LEAD APPLICATIONS DEVELOPER] - 4 Weeks Discharge Medications: Continued PNV no.95-ferrous fumarate-FA [] 28 mg iron- 800 mcg tablet 1 tablet PO DAILY Date of admission: 03/18/25 22:52 Primary Care Provider: PHYSICIAN,WAITER/WAITRESS [employer] CLASS Admitting Provider: Jose Rafael Arrieta Attending physician on admission: Jose Rafael Arrieta Condition: Stable
[2025-03-21 08:15] VITALS: BP 120/70; PULSE 86; RESP 18; TEMP 36.9; O2SAT 98
[2025-03-22 11:25] VITALS: BP 123/74; PULSE 97; RESP 18; TEMP 36.4; O2SAT 98
== END 2025-03-21 14:38 | disposition home or self-care (01) | DRG 807 ==
LOC: ANHOB2 03-21 08:06 → ANHLDR 03-22 09:26 → ANHOB2 03-22 09:26
PROVIDERS: Admitting Provider Obstetrics & Gynecology; Visit Provider Obstetrics & Gynecology
DX: O99.824 Streptococcus B carrier state complicating childbirth (principal); Z37.0 Single live birth; O70.0 First degree perineal laceration during delivery; Z3A.39 39 weeks gestation of pregnancy
CPT/HCPCS: 36415; 80307; 85014; 85018; 85025; 86593; 86850; 86900; 86901; A9270; J0290; J2590; J2795; J7120